=== PATIENT | male | born 1980 | race Hispanic/Latino ===

== ENCOUNTER 2023-03-20 11:48 | Emergency (ER) | payer OTHER ==
[~2023-03-20] VITALS: Ht 177.8 cm; Wt 98.4 kg
[~2023-03-20 11:48] MED LIST: METF-446 PO; PRAZ2CAP2 PO; TRAZ150T79 PO
[2023-03-20 13:35] LABS: APPEARANCE,URINE CLEAR (CLEAR); BILIRUBIN,URINE NEGATIVE (NEGATIVE); COLOR,URINE LIGHT-YELLOW (YELLOW); GLUCOSE, URINE (UA) NEGATIVE (NEGATIVE); KETONES,URINE NEGATIVE (NEGATIVE); LEUKOCYTE ESTERASE ,URINE NEGATIVE Leu/uL (NEGATIVE); NITRATE,URINE NEGATIVE (NEGATIVE); OCCULT BLOOD,URINE NEGATIVE (NEGATIVE); PROTEIN,URINE NEGATIVE (NEGATIVE); UROBILINOGEN,URINE 0.2 mg/dL (0.2-1.0)
[2023-03-20 13:37] LABS: ADD UA MICROSCOPIC NO
[2023-03-20 14:32] LABS: BASOPHILS # (AUTO) 0.04 K/uL (0.00-0.20); BASOPHILS % (AUTO) 0.5 % (0.0-5.0); EOSINOPHILS # (AUTO) 0.05 K/uL (0.00-0.70); EOSINOPHILS % (AUTO) 0.6 % (0.0-8.0); HEMATOCRIT 44.2 % (42-54); IMMATURE GRANULOCYTE ABSOLUTE 0.05 K/uL (0-1); LYMPHOCYTES # (AUTO) 1.5 K/uL (1.0-4.8); LYMPHOCYTES % (AUTO) 17.7 % (21.0-51.0); MEAN CORPUSCULAR HEMOGLOBIN 30.1 pg (27.0-33.0); MEAN CORPUSCULAR HGB CONC 34.6 g/dL (32.0-36.0); MONOCYTES # (AUTO) 0.4 K/uL (0.1-1.0); MONOCYTES % (AUTO) 5.2 % (3.0-13.0); NEUTROPHILS # (AUTO) 6.2 K/uL (1.8-7.7); NEUTROPHILS % (AUTO) 75.4 % (40.0-77.0); PLATELET COUNT (AUTO) 231 K/uL (130-400); RED BLOOD CELL COUNT(AUTO) 5.08 MIL/uL (4.50-6.20); RED CELL DISTRIBUTION WIDTH 12.4 % (11.0-15.5); WHITE BLOOD COUNT (AUTO) 8.3 K/uL (4.8-10.8)
[2023-03-20 14:41] LABS: CREATININE 1.1 mg/dL (0.5-1.5); POTASSIUM 3.9 mmol/L (3.5-5.1)
[2023-03-20 14:46] LABS: ALBUMIN 4.1 g/dL (3.5-5.0); BILIRUBIN,TOTAL 0.8 mg/dL (0.2-1.0); TOTAL PROTEIN, SERUM 7.9 g/dL (6.0-8.3)
[2023-03-20] MEDS ORDERED: IOHEXOL 350 MG/ML 100ML INFUS..BTL IV ONE (16:08)
[2023-03-20 17:38] VITALS: BP 122/68; PULSE 78; RESP 14; O2SAT 98
== END 2023-03-20 17:41 | disposition home or self-care (01) ==
LOC: EDH 11:48
DX: R10.32 Left lower quadrant pain (principal); Z79.84 Long term (current) use of oral hypoglycemic drugs; Z79.899 Other long term (current) drug therapy; Z98.890 Other specified postprocedural states
CPT/HCPCS: 99285; 74177; 80053; 83690; 85025; 81003; 36415; Q9967

== ENCOUNTER 2025-01-25 11:55 | Inpatient (IN) | payer OTHER ==
[~2025-01-25] VITALS: Ht 180.3 cm; Wt 80.6 kg
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
[2025-01-25 12:32] LABS: IMMATURE GRANULOCYTE ABSOLUTE 0.11 K/uL (0-1); NUCLEATED RED BLOOD CELLS 0.0 % (0.0-0.19); PLATELET COUNT (AUTO) 278 K/uL (130-400); RED BLOOD CELL COUNT(AUTO) 4.69 MIL/uL (4.50-6.20); RED CELL DISTRIBUTION WIDTH 13.0 % (11.0-15.5); WHITE BLOOD COUNT (AUTO) 13.4 K/uL (4.8-10.8)
[2025-01-25 12:42] LABS: CREATININE 0.9 mg/dL (0.5-1.3); GLOMERULAR FILTR. RATE CALC 107.0 mL/min (>90); GLUCOSE,RANDOM 154.0 mg/dL (70-105); SODIUM SERUM 141.0 mmol/L (136-145); UREA NITROGEN, BLOOD 12.0 mg/dL (7-18)
[2025-01-25 12:58] LABS: APPEARANCE,URINE CLEAR (CLEAR); GLUCOSE, URINE (UA) NEGATIVE (NEGATIVE); LEUKOCYTE ESTERASE ,URINE NEGATIVE Leu/uL (NEGATIVE); NITRATE,URINE NEGATIVE (NEGATIVE); OCCULT BLOOD,URINE NEGATIVE (NEGATIVE)
[2025-01-25 13:04] LABS: AMPHET/METH SCREEN,URINE NEGATIVE (NEGATIVE); BARBITURATE SCREEN, URINE NEGATIVE (NEGATIVE); CANNABINOID SCREEN,URINE POSITIVE (NEGATIVE); COCAINE SCREEN,URINE NEGATIVE (NEGATIVE)
[2025-01-25 13:10] LABS: ADD UA MICROSCOPIC YES
--- NOTE | 2025-01-25 13:26 | HMCIMG ---
EXAM: CT Head Without IV contrast. CLINICAL HISTORY: Questionable new onset seizure TECHNIQUE: Axial computed tomography images of the head/brain without intravenous contrast. COMPARISON: None provided. FINDINGS: BRAIN: No evidence of acute hemorrhage. No mass lesion. No CT evidence for acute territorial infarct. No midline shift or extra-axial collections. VENTRICLES: No hydrocephalus. ORBITS: The orbits are unremarkable. SINUSES AND MASTOIDS: The paranasal sinuses and mastoid air cells are clear. BONES: No fracture. SOFT TISSUES: Unremarkable. IMPRESSION: No acute intracranial abnormality. /[place]
--- NOTE | 2025-01-25 17:03 | NUR ---
NEURO CONSULT COMPLETED BY
--- NOTE | 2025-01-25 17:59 | NUR ---
1ST ATTEMPT TO PROVIDE REPORT NO ANSWER AT THIS TIME
--- NOTE | 2025-01-25 18:06 | NUR ---
SECOND ATTEMPT TO PROVIDE REPORT AT EXT 1362 NO ANSWER
--- NOTE | 2025-01-25 18:21 | EKG ---
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
--- NOTE | 2025-01-25 18:50 | NUR ---
ATTEMPTED REPORT 3RD TIME CHARGE NOTIFIED AND ESCALATED AFTER SECOND ATTEMPT
[2025-01-25] MEDS: DEXTROSE 50%-WATER 50 ML DISP.SYRIN IV ONE (21:55)
[2025-01-25 22:05] VITALS: BP 143/94; PULSE 73; RESP 19; TEMP 98.5; O2SAT 94
[2025-01-25] MEDS ORDERED: LISI5TAB21 PO (22:11)
[2025-01-25] MEDS ORDERED: PoTASSium chl 10% ELIXIR 20MEQ 20 MEQ/15 ML UDCUP PO PRN (23:00)
[2025-01-25] MEDS: PoTASSium chloRIDE 20MEQ ER 20 MEQ ERTAB PO PRN (23:19)
[2025-01-26] VITALS (7 sets, daily range): BP systolic 137–148; BP diastolic 76–97; PULSE 60–73; RESP 16–19; TEMP 97.3–98.5; O2SAT 96
[2025-01-26 05:20] LABS: IMMATURE GRANULOCYTE ABSOLUTE 0.05 K/uL (0-1); NUCLEATED RED BLOOD CELLS 0.0 % (0.0-0.19); PLATELET COUNT (AUTO) 283 K/uL (130-400); RED BLOOD CELL COUNT(AUTO) 4.65 MIL/uL (4.50-6.20); RED CELL DISTRIBUTION WIDTH 13.2 % (11.0-15.5); WHITE BLOOD COUNT (AUTO) 9.9 K/uL (4.8-10.8)
--- NOTE | 2025-01-26 05:37 | NUR ---
blood surgar 51 patient's blood sugar is 51. he is asymptomatic. gave him orange juice, apple sauce, sandwich, peanut butter and crackers. will continue to monitor blood sugar.
[2025-01-26 05:39] LABS: CREATININE 0.7 mg/dL (0.5-1.3); GLOMERULAR FILTR. RATE CALC 115.0 mL/min (>90); SODIUM SERUM 140.0 mmol/L (136-145); UREA NITROGEN, BLOOD 10.0 mg/dL (7-18)
[2025-01-26 06:05] LABS: GLUCOSE,RANDOM 50.0 mg/dL (70-105)
--- NOTE | 2025-01-26 07:02 | NUR ---
neurology dr. lora at bedside to speak with the patient. no new orders received.
--- NOTE | 2025-01-26 07:30 | NUR ---
blood sugar 50 gave patient sandwich, orange juice, crackers, peanut butter, apple sauce, pudding. will continue to monitor
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
--- NOTE | 2025-01-26 09:08 | NUR ---
DCP:HOME Pt currently lives at home with his Asmita Young [phone]. Pt does not have any DME, home health, or provider services. Pt states that he can complete ADLs independently. PCP is Dr. Caceres and uses [facility] for any RX needs. At NH pt will want to go home and family can assist with transportation. Addendum: 01/26/25 at 0914 by CALIXTO LEVINE SS Amended: Links added.
--- NOTE | 2025-01-26 11:55 | PN ---
INFECTIOUS DISEASE PROGRESS NOTE Date of Service: Jan 26, 2025 SUBJECTIVE: This is a 44-year-old male patient who was admitted for possible seizure activity. No seizure activity reported throughout the night. Patient has been evaluated by neurosurgeon. Blood pressure is more stable this morning, latest blood pressure reading is 148/77. Patient continues on metoprolol and lisinopril. We will continue to follow patient's care. PHYSICAL EXAM EYES: Anicteric. Pupils equal and reactive. HENT: No oral thrush seen, moist Oral mucosa. NECK: Supple, no JVD or thyromegaly. LUNGS: Good air entry. No rales, no rhonchi. CARDIOVASCULAR: S1, S2 regular. No murmur heard. ABDOMEN: Soft, non tender, bowel sounds present, no organomegaly. CENTRAL NERVOUS SYSTEM: Awake, alert, oriented x 3. SKIN: No rashes, no swelling. LYMPHATICS: No peripheral lymphadenopathy. MUSCULOSKELETAL: No joint swelling, erythema or tenderness. EXTREMITIES: No cyanosis or clubbing. BACK: No deformity, no pressure ulcer. GENITOURINARY: No dysuria or hematuria. Vital Sign (Last 12 Hours) 01/26/25 01/26/25 01/26/25 01/26/25 00:00 04:00 07:30 08:00 Temp 98.4 98.4 98.1 Pulse 73 66 73 Resp 19 18 16 B/P (MAP) 143/94 137/97 148/77 Pulse Ox 94 94 94 O2 Delivery Room Air Room Air Room Air* Room Air O2 Flow Rate 0 FiO2 21 Intake & Output (last 24hrs) 01/25/25 01/25/25 01/26/25 14:59 22:59 06:59 Output Total 300 ml Balance -300 ml LABS: Laboratory: Test 01/26/25 11:21 01/26/25 03:51 01/25/25 12:48 01/25/25 12:17 Range/Units Whole Blood Glucose 99 # 70-110 MG/DL White Blood Count 9.9 # 4.8-10.8 K/uL Red Blood Count 4.65 4.50-6.20 MIL/uL Hemoglobin 14.5 14.0-18.0 g/dL Hematocrit 42.1 42-54 % Mean Corpuscular Volume 90.5 79-99 fL Mean Corpuscular Hemoglobin 31.2 27.0-33.0 pg Mean Corpuscular Hemoglobin Concent 34.4 32.0-36.0 g/dL Red Cell Distribution Width 13.2 11.0-15.5 % Platelet Count 283 130-400 K/uL Mean Platelet Volume 10.9 H 7.5-10.5 fL Immature Granulocyte % (Auto) 0.5 0-1 % Neutrophils (%) (Auto) 66.7 40.0-77.0 % Lymphocytes (%) (Auto) 21.9 21.0-51.0 % Monocytes (%) (Auto) 10.1 3.0-13.0 % Eosinophils (%) (Auto) 0.5 0.0-8.0 % Basophils (%) (Auto) 0.3 0.0-5.0 % Neutrophils # (Auto) 6.6 1.8-7.7 K/uL Lymphocytes # (Auto) 2.2 1.0-4.8 K/uL Monocytes # (Auto) 1.0 0.1-1.0 K/uL Eosinophils # (Auto) 0.05 0.00-0.70 K/uL Basophils # (Auto) 0.03 0.00-0.20 K/uL Absolute Immature Granulocyte (auto 0.05 0-1 K/uL Nucleated Red Blood Cells 0.0 0.0-0.19 % Sodium Level 140 136-145 mmol/L Potassium Level 3.8 3.5-5.1 mmol/L Chloride Level 101 101-111 mmol/L Carbon Dioxide Level 28 21-32 mmol/L Blood Urea Nitrogen 10 7-18 mg/dL Creatinine 0.7 0.5-1.3 mg/dL Glomerular Filtration Rate Calc 115 >90 mL/min Random Glucose 50 #*L 70-105 mg/dL Total Calcium 8.5 8.5-10.1 mg/dL Urine Color LIGHT-YELLOW YELLOW Urine Appearance CLEAR CLEAR Urine pH 5.5 5.0-8.0 Urine Specific [place] 1.016 1.001-1.031 Urine Protein 10 H NEGATIVE mg/dL Urine Glucose (UA) NEGATIVE NEGATIVE mg/dL Urine Ketones NEGATIVE NEGATIVE mg/dL Urine Occult Blood NEGATIVE NEGATIVE Urine Nitrate NEGATIVE NEGATIVE Urine Bilirubin NEGATIVE NEGATIVE mg/dL Urine Urobilinogen 0.2 0.2-1.0 mg/dL Urine Leukocyte Esterase NEGATIVE NEGATIVE [place]/uL Urine RBC 0-1 0-1 /HPF Urine WBC 0-1 0-1 /HPF Urine Bacteria RARE None Seen /HPF Urine Hyaline Casts 2-5 H 0-1 /LPF /LPF Urine Opiates Screen NEGATIVE NEGATIVE Urine Barbiturates Screen NEGATIVE NEGATIVE Urine Phencyclidine Screen NEGATIVE NEGATIVE Urine Amphetamines Screen NEGATIVE NEGATIVE Urine Benzodiazepines Screen NEGATIVE NEGATIVE Urine Cocaine Screen NEGATIVE NEGATIVE Urine Marijuana (THC) Screen POSITIVE H NEGATIVE Hemoglobin A1c 5.8 4.0-6.0 % Estimated Average Glucose (eAG) 120 70-126 mg/dL Troponin I High Sensitivity 4 4-75 ng/L Lipase 16 16-77 U/L ASSESSMENT: Hypertensive urgency. Possible seizure. Diabetes mellitus. Marijuana use for chronic Back pain. PLAN: Home medications has been reconciled. Continue Metoprolol. Continue antidiabetics. Seizure precautions. General heart healthy diet. This case was reviewed and discussed with my supervising physician Dr. Jett and the above assessment and plan was formulated and agreed upon. ATTESTATION BY PHYSICIAN I have seen and examined the patient. I reviewed the documentation, medical decision making, and treatment plan as noted by the mid-level provider above. I agree with the findings and plan of care. DUY JETT MD, [facility]TA [facility] Jan 26, 2025 11:55
--- NOTE | 2025-01-26 13:21 | CONS ---
CONSULTATION NOTE Date of Service: Jan 26, 2025 Reason for Consultation: Eval possible seizure Requesting Physician: Hospitalist HISTORY OF PRESENT ILLNESS: Mr. Young is a 44-year-old right-handed male with a history of diabetes presenting with sudden loss of consciousness. The patient reports that while watching TV, he suddenly "didn't know anything." Upon regaining consciousness, he found his standing over him with ambulance workers present. The patient's , Asmita, who witnessed the event, describes Mr. Young as disoriented and sweaty with cold sweats. She observed some stiffness, and the patient's son reported seeing foam coming from his mouth. Mr. Young confirms biting his tongue on the right side during the episode. Mr. Young denies any recent changes in his routine, including skipping meals or consuming alcohol. He also denies recent headaches, nausea, or vomiting. The patient reports no use of recreational drugs, amphetamines, cocaine, or marijuana. He also denies consumption of alcohol, caffeinated drinks, or energy drinks. There was no urinary or bowel incontinence during the event. Medical History - Diabetes, treated with metformin 500 mg twice daily Surgical History - No surgical history reported Medications and Supplements - Metformin 500 mg by mouth twice daily Allergies - No known drug allergies reported Family History - Not provided Social History - Substance Use: Denies alcohol consumption, recreational drugs, and caffeine use - Living Situation: Lives with and son Immunizations - Not provided REVIEW OF SYSTEMS General: Negative for fever, chills, fatigue, muscle aches, appetite or weight change. Skin: Positive for sweating. HEENT: Positive for tongue biting on the right side. Cardiovascular: Negative for palpitations. Respiratory: Negative for shortness of breath. Gastrointestinal: Negative for bowel incontinence. Genitourinary: Negative for urinary incontinence. Neurological: Positive for loss of consciousness. Negative for headaches. PAST MEDICAL HISTORY: DM2 PAST SURGICAL HISTORY: none PAST SOCIAL HISTORY: No tobacco alcohol recreational drug abuse FAMILY HISTORY: Noncontributory Coded Allergies: No Known Allergies (Verified Allergy, Unknown, 11/27/14) PHYSICAL EXAM Mental status: The patient is alert, attentive, and oriented. Speech is clear and fluent with good repetition, comprehension, and naming. Pt recalls 3/3 objects at 5 minutes. Cranial nerves: CN II: Visual beckwith are full to confrontation. CN III, IV, : At primary gaze, there is no eye deviation. CN V: Facial sensation is intact to pinprick in all 3 divisions bilaterally. Corneal responses are intact. CN VII: Face is symmetric with normal eye closure and smile. CN VIII: Hearing is normal to rubbing fingers CN IX, X: Palate elevates symmetrically. Phonation is normal. CN XI: Head turning and shoulder shrug are intact CN XII: Tongue is midline with normal movements and no atrophy. Motor: There is no pronator drift of out-stretched arms. Muscle bulk and tone are normal. Strength is full bilaterally. Reflexes: Reflexes are 2+ and symmetric at the biceps, triceps, knees, and ankles. Plantar responses are flexor. Sensory: Light touch, pinprick, position sense, and vibration sense are intact in fingers and toes. Coordination: Rapid alternating movements and fine finger movements are intact. There is no dysmetria on ywqsva-lb-vgsy and trig-ufca-nuod. There are no abnormal or extraneous movements. Romberg is absent. Gait/Stance: Not evaluated Vital Sign (Last 24 Hours) 01/26/25 01/26/25 07:30 08:00 Temp 98.1 Pulse 73 Resp 16 B/P (MAP) 148/77 Pulse Ox 94 O2 Delivery Room Air O2 Flow Rate 0 FiO2 21 Intake & Output (last 24hrs) 01/25/25 01/25/25 01/26/25 14:59 22:59 06:59 Output Total 300 ml Balance -300 ml LABS: Laboratory: Test 01/26/25 11:21 01/26/25 03:51 01/25/25 12:48 01/25/25 12:17 Range/Units Whole Blood Glucose 99 # 70-110 MG/DL White Blood Count 9.9 # 4.8-10.8 K/uL Red Blood Count 4.65 4.50-6.20 MIL/uL Hemoglobin 14.5 14.0-18.0 g/dL Hematocrit 42.1 42-54 % Mean Corpuscular Volume 90.5 79-99 fL Mean Corpuscular Hemoglobin 31.2 27.0-33.0 pg Mean Corpuscular Hemoglobin Concent 34.4 32.0-36.0 g/dL Red Cell Distribution Width 13.2 11.0-15.5 % Platelet Count 283 130-400 K/uL Mean Platelet Volume 10.9 H 7.5-10.5 fL Immature Granulocyte % (Auto) 0.5 0-1 % Neutrophils (%) (Auto) 66.7 40.0-77.0 % Lymphocytes (%) (Auto) 21.9 21.0-51.0 % Monocytes (%) (Auto) 10.1 3.0-13.0 % Eosinophils (%) (Auto) 0.5 0.0-8.0 % Basophils (%) (Auto) 0.3 0.0-5.0 % Neutrophils # (Auto) 6.6 1.8-7.7 K/uL Lymphocytes # (Auto) 2.2 1.0-4.8 K/uL Monocytes # (Auto) 1.0 0.1-1.0 K/uL Eosinophils # (Auto) 0.05 0.00-0.70 K/uL Basophils # (Auto) 0.03 0.00-0.20 K/uL Absolute Immature Granulocyte (auto 0.05 0-1 K/uL Nucleated Red Blood Cells 0.0 0.0-0.19 % Sodium Level 140 136-145 mmol/L Potassium Level 3.8 3.5-5.1 mmol/L Chloride Level 101 101-111 mmol/L Carbon Dioxide Level 28 21-32 mmol/L Blood Urea Nitrogen 10 7-18 mg/dL Creatinine 0.7 0.5-1.3 mg/dL Glomerular Filtration Rate Calc 115 >90 mL/min Random Glucose 50 #*L 70-105 mg/dL Total Calcium 8.5 8.5-10.1 mg/dL Urine Color LIGHT-YELLOW YELLOW Urine Appearance CLEAR CLEAR Urine pH 5.5 5.0-8.0 Urine Specific [place] 1.016 1.001-1.031 Urine Protein 10 H NEGATIVE mg/dL Urine Glucose (UA) NEGATIVE NEGATIVE mg/dL Urine Ketones NEGATIVE NEGATIVE mg/dL Urine Occult Blood NEGATIVE NEGATIVE Urine Nitrate NEGATIVE NEGATIVE Urine Bilirubin NEGATIVE NEGATIVE mg/dL Urine Urobilinogen 0.2 0.2-1.0 mg/dL Urine Leukocyte Esterase NEGATIVE NEGATIVE [place]/uL Urine RBC 0-1 0-1 /HPF Urine WBC 0-1 0-1 /HPF Urine Bacteria RARE None Seen /HPF Urine Hyaline Casts 2-5 H 0-1 /LPF /LPF Urine Opiates Screen NEGATIVE NEGATIVE Urine Barbiturates Screen NEGATIVE NEGATIVE Urine Phencyclidine Screen NEGATIVE NEGATIVE Urine Amphetamines Screen NEGATIVE NEGATIVE Urine Benzodiazepines Screen NEGATIVE NEGATIVE Urine Cocaine Screen NEGATIVE NEGATIVE Urine Marijuana (THC) Screen POSITIVE H NEGATIVE Hemoglobin A1c 5.8 4.0-6.0 % Estimated Average Glucose (eAG) 120 70-126 mg/dL Troponin I High Sensitivity 4 4-75 ng/L Lipase 16 16-77 U/L DIAGNOSTICS / RADIOLOGY: CT scan of the head without contrast normal ASSESSMENT / PLAN: Mr Young is a 44-year-old right-handed male with diabetes who presents with sudden loss of consciousness with witnessed stiffness, foaming at the mouth, and tongue biting, concerning for possible first seizure. Possible first seizure Assessment: Patient experienced sudden loss of consciousness while watching television with witnessed stiffness, foaming at the mouth, and right-sided tongue biting. observed disorientation, cold sweating, and some stiffness. These findings are suggestive of a generalized seizure, though the cold sweating could also indicate syncope, making the diagnosis uncertain. This appears to be a first unprovoked event. Neurological examination was normal. Given the uncertainty between seizure versus syncope and this being a potential first event, further workup is indicated to evaluate for underlying structural abnormalities or seizure focus. Plan: - Order MRI of brain to evaluate for structural abnormalities - Order EEG to assess for seizure activity - If MRI and EEG are negative, will observe for now - If patient has a second non-provoked seizure, will initiate Keppra twice daily - Patient advised not to drive for 3 months per [place] law due to risk of recurrent events - Patient educated on different types of seizures including focal and generalized seizures - Follow-up after EEG and MRI results to determine further management Diabetes mellitus Assessment: Patient has established diabetes mellitus currently managed with metformin. Plan: - Continue metformin 500 mg twice daily Thank you for your consultation MARTHA WILKINSON MD Jan 26, 2025 13:21
[2025-01-26] MEDS ORDERED: GADOTERATE MEGLUMINE 10 MMOL/20 ML VIAL IV ONE (20:09)
[2025-01-27] VITALS: BP 148/96; PULSE 54; RESP 18; TEMP 98.3
--- NOTE | 2025-01-27 01:49 | NUR ---
nurse note patient alert and oriented times 3. plan of care discussed with him and he verbalized understanding. patient is ambulatory. he has no issues. he has slept about 6 hours tonight. he has no pain. call light within reach, bed alarm on, 2 side rails up. will continue to monitor patient.
[2025-01-27 04:00] VITALS: BP 133/88; PULSE 62; RESP 20; TEMP 98.3
[2025-01-27] MEDS: LISINOPRIL 5 MG TABLET PO SCH (09:40)
--- NOTE | 2025-01-27 10:09 | PRN ---
ELECTROENCEPHALOGRAM REPORT NEUROLOGIST: Dr Liriano DATE OF STUDY: 01/27/2025 INDICATION FOR STUDY: This is a 44-year-old gentleman with possible seizures. TECHNIQUE: This a digital acquisition electroencephalogram use international 10- 20 system on a bipolar and referential montages 17 changes were used for this seizure recordin for EEG and 1 for EKG. The patient to be on a awake state. Hyperventilation was not performed the study. Photic stimulation was performed as activating procedure. FINDINGS: The patient had a normal background alpha rhythm shows well organized, normal voltage, up to 9 hertz alpha activity per cycle an amplitude of 20 microvolts. No [id number]-lcb-fdvq discharges or any lateralizing abnormalities were seen. Photic stimulation did not produce any abnormalities or driving response. IMPRESSION: Normal EEG with alpha background rhythm. No epileptiform discharges or any other paroxysmal activities or focal abnormalities were seen. Clinical correlation is recommended. MARTHA WILKINSON MD Jan 27, 2025 10:09
--- NOTE | 2025-01-27 10:10 | PN ---
PROGRESS NOTE Date of Service: Jan 27, 2025 Time of Service: 10:09 SUBJECTIVE: The patient has been neurologically stable with no new neurological deficits no new complaints. The patient has been hemodynamically stable. Afebrile. No seizure activity has been observed over the past 24 hours. EEG with alpha activity no epileptiform activity or seizure activity observed REVIEW OF SYSTEMS General: Negative for fever, chills, fatigue, muscle aches, appetite or weight change. Skin: Positive for sweating. HEENT: Positive for tongue biting on the right side. Cardiovascular: Negative for palpitations. Respiratory: Negative for shortness of breath. Gastrointestinal: Negative for bowel incontinence. Genitourinary: Negative for urinary incontinence. Neurological: Positive for loss of consciousness. Negative for headaches. PHYSICAL EXAM Mental status: The patient is alert, attentive, and oriented. Speech is clear and fluent with good repetition, comprehension, and naming. Pt recalls 3/3 objects at 5 minutes. Cranial nerves: CN II: Visual beckwith are full to confrontation. CN III, IV, : At primary gaze, there is no eye deviation. CN V: Facial sensation is intact to pinprick in all 3 divisions bilaterally. Corneal responses are intact. CN VII: Face is symmetric with normal eye closure and smile. CN VIII: Hearing is normal to rubbing fingers CN IX, X: Palate elevates symmetrically. Phonation is normal. CN XI: Head turning and shoulder shrug are intact CN XII: Tongue is midline with normal movements and no atrophy. Motor: There is no pronator drift of out-stretched arms. Muscle bulk and tone are normal. Strength is full bilaterally. Reflexes: Reflexes are 2+ and symmetric at the biceps, triceps, knees, and ankles. Plantar responses are flexor. Sensory: Light touch, pinprick, position sense, and vibration sense are intact in fingers and toes. Coordination: Rapid alternating movements and fine finger movements are intact. There is no dysmetria on drwvbj-pi-cswv and ywuk-hrtp-aaws. There are no abnormal or extraneous movements. Romberg is absent. Gait/Stance: Not evaluated Vital Signs (last 8hr) Date Time Temp Pulse Resp B/P (MAP) Pulse Ox O2 Delivery O2 Flow Rate FiO2 01/27/25 08:00 Room Air* 0 21 01/27/25 04:00 98.2 62 20 133/88 96 Room Air LABS: Laboratory: Test 01/27/25 05:02 01/26/25 03:51 01/25/25 12:48 01/25/25 12:17 Range/Units Whole Blood Glucose 60 #L 70-110 MG/DL White Blood Count 9.9 # 4.8-10.8 K/uL Red Blood Count 4.65 4.50-6.20 MIL/uL Hemoglobin 14.5 14.0-18.0 g/dL Hematocrit 42.1 42-54 % Mean Corpuscular Volume 90.5 79-99 fL Mean Corpuscular Hemoglobin 31.2 27.0-33.0 pg Mean Corpuscular Hemoglobin Concent 34.4 32.0-36.0 g/dL Red Cell Distribution Width 13.2 11.0-15.5 % Platelet Count 283 130-400 K/uL Mean Platelet Volume 10.9 H 7.5-10.5 fL Immature Granulocyte % (Auto) 0.5 0-1 % Neutrophils (%) (Auto) 66.7 40.0-77.0 % Lymphocytes (%) (Auto) 21.9 21.0-51.0 % Monocytes (%) (Auto) 10.1 3.0-13.0 % Eosinophils (%) (Auto) 0.5 0.0-8.0 % Basophils (%) (Auto) 0.3 0.0-5.0 % Neutrophils # (Auto) 6.6 1.8-7.7 K/uL Lymphocytes # (Auto) 2.2 1.0-4.8 K/uL Monocytes # (Auto) 1.0 0.1-1.0 K/uL Eosinophils # (Auto) 0.05 0.00-0.70 K/uL Basophils # (Auto) 0.03 0.00-0.20 K/uL Absolute Immature Granulocyte (auto 0.05 0-1 K/uL Nucleated Red Blood Cells 0.0 0.0-0.19 % Sodium Level 140 136-145 mmol/L Potassium Level 3.8 3.5-5.1 mmol/L Chloride Level 101 101-111 mmol/L Carbon Dioxide Level 28 21-32 mmol/L Blood Urea Nitrogen 10 7-18 mg/dL Creatinine 0.7 0.5-1.3 mg/dL Glomerular Filtration Rate Calc 115 >90 mL/min Random Glucose 50 #*L 70-105 mg/dL Total Calcium 8.5 8.5-10.1 mg/dL Urine Color LIGHT-YELLOW YELLOW Urine Appearance CLEAR CLEAR Urine pH 5.5 5.0-8.0 Urine Specific [place] 1.016 1.001-1.031 Urine Protein 10 H NEGATIVE mg/dL Urine Glucose (UA) NEGATIVE NEGATIVE mg/dL Urine Ketones NEGATIVE NEGATIVE mg/dL Urine Occult Blood NEGATIVE NEGATIVE Urine Nitrate NEGATIVE NEGATIVE Urine Bilirubin NEGATIVE NEGATIVE mg/dL Urine Urobilinogen 0.2 0.2-1.0 mg/dL Urine Leukocyte Esterase NEGATIVE NEGATIVE [place]/uL Urine RBC 0-1 0-1 /HPF Urine WBC 0-1 0-1 /HPF Urine Bacteria RARE None Seen /HPF Urine Hyaline Casts 2-5 H 0-1 /LPF /LPF Urine Opiates Screen NEGATIVE NEGATIVE Urine Barbiturates Screen NEGATIVE NEGATIVE Urine Phencyclidine Screen NEGATIVE NEGATIVE Urine Amphetamines Screen NEGATIVE NEGATIVE Urine Benzodiazepines Screen NEGATIVE NEGATIVE Urine Cocaine Screen NEGATIVE NEGATIVE Urine Marijuana (THC) Screen POSITIVE H NEGATIVE Hemoglobin A1c 5.8 4.0-6.0 % Estimated Average Glucose (eAG) 120 70-126 mg/dL Troponin I High Sensitivity 4 4-75 ng/L Lipase 16 16-77 U/L DIAGNOSTICS / RADIOLOGY: CT scan of the head without contrast normal ASSESSMENT / PLAN: Mr Young is a 44-year-old right-handed male with diabetes who presents with sudden loss of consciousness with witnessed stiffness, foaming at the mouth, and tongue biting, concerning for possible first seizure. Possible first seizure Assessment: Patient experienced sudden loss of consciousness while watching television with witnessed stiffness, foaming at the mouth, and right-sided tongue biting. observed disorientation, cold sweating, and some stiffness. These findings are suggestive of a generalized seizure, though the cold sweating could also indicate syncope, making the diagnosis uncertain. This appears to be a first unprovoked event. Neurological examination was normal. Given the uncertainty between seizure versus syncope and this being a potential first event, further workup is indicated to evaluate for underlying structural abnormalities or seizure focus. MRI of the brain without contrast was negative for any major abnormalities awaiting official radiology report. EEG with no epileptiform activity or seizures Plan: - okay to discharge from neurological standpoint - If patient has a second non-provoked seizure, will initiate Keppra twice daily - Patient advised not to drive for 3 months per [employer] due to risk of recurrent events - Patient educated on different types of seizures including focal and generalized seizures - follow up as an outpatient Diabetes mellitus Assessment: Patient has established diabetes mellitus currently managed with metformin. Plan: - Continue metformin 500 mg twice daily Thank you for your consultation. I will sign off. Thank you for your consultation MARTHA WILKINSON MD Jan 27, 2025 10:10
[2025-01-27 12:00] VITALS: BP 125/95; PULSE 67; RESP 18; TEMP 98.4
--- NOTE | 2025-01-27 14:08 | NUR ---
DISCHARGE NOTE Patient IV and ID bands removed. Discharge instructions reviewed with patient. Multiple attempts were made to schedule an appointment with Dr. Liriano for follow up. Patient provided office information, address and phone number and will call to schedule follow up visit in 1 week. Personal items taken with family. Patient wheeled down to private vehicle via wheelchair.
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
--- NOTE | 2025-01-27 15:58 | HMCIMG ---
EXAM: MR Brain Without and With IV Contrast. CLINICAL HISTORY: Seizures. TECHNIQUE: Multiplanar multi-sequence MRI of the brain with and without contrast. COMPARISON: CT dated January 25, 2025. FINDINGS: No abnormal parenchymal signal is present. No abnormal post-contrast enhancement. No evidence of acute cortical infarction, hemorrhage, mass, or mass effect. The ventricular system is normal in size, shape, and contour. No hydrocephalus. No abnormal extra-axial fluid collection is present. The marrow signal within the skull base and calvarium is intact. The mastoid air cells are clear. Mild polypoidal mucosal thickening in bilateral maxillary sinuses. IMPRESSION: 1. No acute intracranial abnormality or mass. No abnormal post-contrast enhancement. Compared to the previous CT dated January 25, 2025, no significant interval change. /[place]
== END 2025-01-27 14:20 | disposition home or self-care (01) | DRG 305 ==
LOC: EDH 11:55 → EDHIP 15:59 → 4AH 21:13
PROVIDERS: ADMIT Internal Medicine Infectious Disease; ATTEND Internal Medicine Infectious Disease
PROC: 4A00X4Z Measurement of Central Nervous Electrical Activity, External Approach (ICD-10-PCS; principal; 2025-01-25)
DX: I16.0 Hypertensive urgency (principal); R56.9 Unspecified convulsions; E83.51 Hypocalcemia; E87.6 Hypokalemia; E66.9 Obesity, unspecified; E11.9 Type 2 diabetes mellitus without complications; G89.29 Other chronic pain; M54.59 Other low back pain; Z79.84 Long term (current) use of oral hypoglycemic drugs; Z79.899 Other long term (current) drug therapy; Z68.24 Body mass index [BMI] 24.0-24.9, adult
CPT/HCPCS: 36415; 70450; 70553; 80048; 80305; 81001; 82948; 83036; 83690; 84484; 85025; 93005; 95819; 96374; 99285; G0378; J0360; J1953; J2405; J7070; A9575